=== PATIENT | female | born 1960 ===

== ENCOUNTER 2023-01-04 | Emergency (ER) | payer MEDICARE | END 2023-01-04 03:00 | disposition home or self-care (01) | LOC: ERS | DX: S70.362A Insect bite (nonvenomous), left thigh, initial encounter (principal); S70.361A Insect bite (nonvenomous), right thigh, initial encounter; I10 Essential (primary) hypertension; E78.5 Hyperlipidemia, unspecified; J44.9 Chronic obstructive pulmonary disease, unspecified; Z79.899 Other long term (current) drug therapy; W57.XXXA Bitten or stung by nonvenomous insect and other nonvenomous arthropods, initial encounter | CPT/HCPCS: 99282 ==